=== PATIENT | female | born 1970 | race Caucasian/White ===

== ENCOUNTER 2021-02-10 16:39 | Emergency (ER) | payer OTHER ==
[~2021-02-10] VITALS: Ht 154.9 cm; Wt 82.0 kg
[2021-02-10 17:16] VITALS: BP 126/78
[2021-02-10] MEDS ORDERED: LIDO700A15 TP (17:45)
[2021-02-10] MEDS ORDERED: TOPUD MT (17:45)
== END 2021-02-10 22:45 | disposition home or self-care (01) ==
LOC: ER 16:39
DX: R21 Rash and other nonspecific skin eruption (principal); E11.9 Type 2 diabetes mellitus without complications; Z98.890 Other specified postprocedural states
CPT/HCPCS: 99283

== ENCOUNTER 2021-04-15 12:33 | Emergency (ER) | payer OTHER ==
[~2021-04-15] VITALS: Ht 160 cm; Wt 82.0 kg
[~2021-04-15 12:33] MED LIST: LIDO700A15 TP; TOPUD MT
[2021-04-15 12:55] VITALS: BP 124/86
== END 2021-04-15 20:15 | disposition left against medical advice (07) ==
LOC: ER 12:33
DX: Z53.21 Procedure and treatment not carried out due to patient leaving prior to being seen by health care provider (principal)